=== PATIENT | female | born 1970 | race Hispanic/Latino ===

== ENCOUNTER 2017-11-10 00:10 | Emergency (ER) | payer SELFPAY | END 2017-11-10 00:11 | disposition left against medical advice (07) | LOC: ED 00:10 | DX: R51 Headache (principal); Z53.21 Procedure and treatment not carried out due to patient leaving prior to being seen by health care provider ==

== ENCOUNTER 2017-11-11 07:00 | Emergency (ER) | payer BC ==
--- NOTE | 2017-11-11 10:49 | Emergency Department Report ---
ED Headache HPI - General Chief Complaint: Headache Stated Complaint: HEADACHE Time Seen by Provider: 11/11/17 10:12 Source: patient, family Exam Limitations: no limitations - History of Present Illness Initial Comments: Patient is a 47-year-old female that presents to emergency room with headache 3 days. Patient states that she has been taking [id number] medications and is not getting any relief. Patient states that her pain is a 10 right frontal. She denies dizziness and blurry vision. Patient denies fever and chills and cough. Patient states the worst headache of her life. Timing/Duration: constant Quality: severe Head Injury Location: frontal Recent Head Trauma: no recent headache/trauma Modifying Factors: improves with: exposure to light, medication, movement, rest Associated Symptoms: denies symptoms Allergies/Adverse Reactions: Allergies No Known Allergies Allergy (Verified 11/11/17 07:17) Home Medications: Ambulatory Orders Amlodipine Besylate [Norvasc] 10 mg PO DAILY 11/11/17 Amoxicillin [Amoxicillin TAB] 875 mg PO BID 10 Days #20 tablet 11/11/17 AtorvaSTATin [Lipitor] 10 mg PO QHS 11/11/17 Sitagliptin Phos/Metformin HCl [Janumet XR 50-1,000 mg] 1 tab PO DAILY 11/11/17 Triamterene/Hydrochlorothiazid [Triamterene-Hctz 75-50 mg Tab] 1 tab PO DAILY glipiZIDE [Glipizide] 10 mg PO BID 11/11/17 methylPREDNISolone [Medrol] 4 mg PO DAILY 6 Days #1 tab.ds.pk 11/11/17 ED Review of Systems ROS: Stated complaint: HEADACHE Other details as noted in HPI Comment: All other systems reviewed and negative Constitutional: denies: chills, fever Eyes: denies: eye pain, eye discharge, vision change ENT: denies: ear pain, throat pain Respiratory: denies: cough, shortness of breath, wheezing Cardiovascular: denies: chest pain, palpitations Endocrine: no symptoms reported Gastrointestinal: denies: abdominal pain, nausea, diarrhea Genitourinary: denies: urgency, dysuria, discharge Musculoskeletal: denies: back pain, joint swelling, arthralgia Skin: denies: rash, lesions Neurological: as per HPI, headache. denies: weakness, paresthesias Psychiatric: denies: anxiety, depression Hematological/Lymphatic: denies: easy bleeding, easy bruising ED Past Medical Hx - Past Medical History Previous Medical History?: Yes Hx Hypertension: Yes Hx Diabetes: Yes Hx of Cancer: Yes (lymphoma) - Surgical History Past Surgical History?: Yes - Family History Family history: hypertension - Social History Smoking Status: Never Smoker Substance Use Type: None - Medications Home Medications: Home Medications Medication Instructions Recorded Confirmed Last Taken Type Amlodipine Besylate [Norvasc] 10 mg PO DAILY 11/11/17 11/11/17 Unknown History Amoxicillin [Amoxicillin TAB] 875 mg PO BID 10 Days #20 tablet 11/11/17 Unknown Rx AtorvaSTATin [Lipitor] 10 mg PO QHS 11/11/17 11/11/17 Unknown History Sitagliptin Phos/Metformin HCl 1 tab PO DAILY 11/11/17 11/11/17 Unknown History [Janumet XR 50-1,000 mg] Triamterene/Hydrochlorothiazid 1 tab PO DAILY 11/11/17 11/11/17 Unknown History [Triamterene-Hctz 75-50 mg Tab] glipiZIDE [Glipizide] 10 mg PO BID 11/11/17 11/11/17 Unknown History methylPREDNISolone [Medrol] 4 mg PO DAILY 6 Days #1 tab.ds.pk 11/11/17 Unknown Rx ED Physical Exam - General Limitations: No Limitations General appearance: alert, in no apparent distress - Head Head exam: Present: atraumatic, normocephalic - Eye Eye exam: Present: normal appearance - ENT ENT exam: Present: mucous membranes dry, other (right frontal sinus tenderness and right maxillary sinus tenderness. ) - Expanded ENT Exam Expanded Ear exam: Present: normal external inspection Mouth exam: Present: normal external inspection - Neck Neck exam: Present: normal inspection - Respiratory Respiratory exam: Present: normal lung sounds bilaterally. Absent: respiratory distress - Cardiovascular Cardiovascular Exam: Present: regular rate, normal rhythm. Absent: systolic murmur, diastolic murmur, rubs, gallop - GI/Abdominal GI/Abdominal exam: Present: soft, normal bowel sounds - Extremities Exam Extremities exam: Present: normal inspection - Back Exam Back exam: Present: normal inspection - Neurological Exam Neurological exam: Present: alert, oriented X3 - Psychiatric Psychiatric exam: Present: normal affect, normal mood - Skin Skin exam: Present: warm, dry, intact, normal color. Absent: rash ED Course Vital Signs 11/11/17 11/11/17 07:17 09:44 Temperature 98.9 F 97.9 F Pulse Rate 84 85 Respiratory 18 18 Rate Blood Pressure 173/101 Blood Pressure 147/90 [Left] O2 Sat by Pulse 96 99 Oximetry ED Medical Decision Making - Lab Data Result diagrams: 11/11/17 11:02 11/11/17 11:02 - Radiology Data Radiology results: report reviewed Normal limits CT scan - Medical Decision Making Patient is a 47-year-old female that presented to emergency room with headache [address] is normal labs unremarkable for elevated white count. Patient has right frontal sinus and right maxillary sinus tenderness on exam. Will treat patient for sinusitis. She is stable for discharge. All labs and diagnostics reviewed and discussed with patient. She given discharge instructions and instructions on how to take prescriptions. - Differential Diagnosis headache, sinus rueda, uri. migraine, tension rueda Critical care attestation.: If time is entered above; I have spent that time in minutes in the direct care of this critically ill patient, excluding procedure time. ED Disposition Clinical Impression: Headache, Sinusitis Disposition: DC-01 TO HOME OR SELFCARE Is pt being admited?: No Does the pt Need Aspirin: No Condition: Stable Instructions: Sinusitis (ED) Additional Instructions: Patient to follow-up with primary care in 3-5 days. Patient take medications as prescribed. Increase water. Patient to take ibuprofen and Tylenol when necessary. Patient to follow-up in the ER if condition worsens. Prescriptions: Amoxicillin [Amoxicillin TAB] 875 mg PO BID 10 Days #20 tablet methylPREDNISolone [Medrol] 4 mg PO DAILY 6 Days #1 tab.ds.pk Referrals: YANIRA DELVALLE MD [Primary Care Provider] - 3-5 Days Time of Disposition: 12:09
[2017-11-11 11:32] LABS: Basophils % (Auto) 0.3 % (0.0-1.8); Eosinophils # (Auto) 0.1 K/mm3 (0.0-0.4); Eosinophils % (Auto) 0.8 % (0.0-4.3); Hematocrit 43.6 % (30.3-42.9); Hemoglobin 13.8 gm/dl (10.1-14.3); Lymphocytes # (Auto) 3.6 K/mm3 (1.2-5.4); Lymphocytes % (Auto) 26.4 % (13.4-35.0); Mean Corpuscular HGB Conc 32 % (30-34); Mean Corpuscular Hemoglobin 28 pg (28-32); Mean Corpuscular Volume 88 fl (79-97); Monocytes # (Auto) 0.7 K/mm3 (0.0-0.8); Monocytes % (Auto) 4.9 % (0.0-7.3); Red Blood Count 4.96 M/mm3 (3.65-5.03); Red Cell Distribution Width 14.3 % (13.2-15.2)
--- NOTE | 2017-11-11 11:34 | Cat Scan Report ---
CT HEAD WITHOUT CONTRAST: HISTORY: Headache. TECHNIQUE: Sequential 2.5mm CT images. COMPARISON: none. FINDINGS: Cerebral Parenchyma: Within normal limits. Cerebellum: Within normal limits. Brainstem: Within normal limits. Ventricles: Normal. Sella: Normal. Extra-axial spaces: Normal. Basal Cisterns: Normal. Intracranial Hemorrhage: None. Midline Shift: None. Calvarium: Normal. Sinuses: Normal. Mastoid Air Cells: Normal. Visualized Orbits: Normal. IMPRESSION: Cranial CT scan within normal limits.
[2017-11-11 11:40] LABS: Platelet Count 215 K/mm3 (140-440)
[2017-11-11 11:50] LABS: Alanine Aminotransferase 17 units/L (7-56); Albumin 3.8 g/dL (3.9-5); BUN/Creatinine Ratio 14; Blood Urea Nitrogen 10 mg/dL (7-17); Hemolysis Index 18
[2017-11-11 11:58] LABS: HCG Qualitative,Urine Negative (Negative)
[2017-11-11 12:01] LABS: Bacteria,Urine 1+ /HPF (Negative); Bilirubin,Urine NEG (Negative); Blood,Urine NEG (Negative); Color,Urine Yellow (Yellow); Mucus,Urine 3+ /HPF; Nitrite,Urine NEG (Negative); Urobilinogen,Urine < 2.0 mg/dL (<2.0)
[2017-11-11] MEDS ORDERED: ROCEPHIN IM ONE (12:11)
[2017-11-11] MEDS ORDERED: XYLOCAINE 1% MPF 5 mL INFILTRATI ONE (12:11)
[2017-11-11 12:49] VITALS: BP 151/94
== END 2017-11-11 12:48 | disposition home or self-care (01) ==
LOC: ED 07:00
DX: J32.9 Chronic sinusitis, unspecified (principal); I10 Essential (primary) hypertension; E11.9 Type 2 diabetes mellitus without complications; Z85.72 Personal history of non-Hodgkin lymphomas
CPT/HCPCS: 36415; 70450; 80053; 81001; 81025; 85025; 96372; 99284; J0696; J2930

== ENCOUNTER 2018-05-31 15:16 | Emergency (ER) | payer BC ==
[2018-05-31] MEDS ORDERED: MOTRIN PO ONE (16:55)
--- NOTE | 2018-05-31 18:19 | Emergency Department Report ---
ED Extremity Problem HPI - General Chief complaint: Extremity Injury, Upper Stated complaint: LEFT ARM/PAIN Time Seen by Provider: 05/31/18 16:42 Source: patient Mode of arrival: Ambulatory Limitations: No Limitations - History of Present Illness Initial comments: Patient is a 47-year-old female who slipped and fell on her left shoulder and arm. The patient states she did not hit her head there was no loss of consciousness. Patient states that the pain is 8 out of 10 in severity her torso she is moving her arm she does have full range of motion.. Severity scale (0 -10): 7 - Related Data Home Medications Medication Instructions Recorded Confirmed Last Taken Amlodipine Besylate [Norvasc] 10 mg PO DAILY 11/11/17 11/11/17 Unknown AtorvaSTATin [Lipitor] 10 mg PO QHS 11/11/17 11/11/17 Unknown Sitagliptin Phos/Metformin HCl 1 tab PO DAILY 11/11/17 11/11/17 Unknown [Janumet XR 50-1,000 mg] Triamterene/Hydrochlorothiazid 1 tab PO DAILY 11/11/17 11/11/17 Unknown [Triamterene-Hctz 75-50 mg Tab] glipiZIDE [Glipizide] 10 mg PO BID 11/11/17 11/11/17 Unknown Previous Rx's Medication Instructions Recorded Last Taken Type Amoxicillin [Amoxicillin TAB] 875 mg PO BID 10 Days #20 tablet 11/11/17 Unknown Rx methylPREDNISolone [Medrol] 4 mg PO DAILY 6 Days #1 tab.ds.pk 11/11/17 Unknown Rx HYDROcodone/APAP 5-325 [[place] 1 each PO Q4HR PRN #12 tablet 05/31/18 Unknown Rx 5/325] Ibuprofen [Motrin] 600 mg PO Q8H PRN #20 tablet 05/31/18 Unknown Rx Allergies Allergy/AdvReac Type Severity Reaction Status Date / Time No Known Allergies Allergy Verified 11/11/17 07:17 ED Review of Systems ROS: Stated complaint: LEFT ARM/PAIN Other details as noted in HPI Comment: All other systems reviewed and negative ED Past Medical Hx - Past Medical History Hx Hypertension: Yes Hx Diabetes: Yes Additional medical history: lymphoma - Surgical History Past Surgical History?: No - Social History Smoking Status: Never Smoker Substance Use Type: None - Medications Home Medications: Home Medications Medication Instructions Recorded Confirmed Last Taken Type Amlodipine Besylate [Norvasc] 10 mg PO DAILY 11/11/17 11/11/17 Unknown History Amoxicillin [Amoxicillin TAB] 875 mg PO BID 10 Days #20 tablet 11/11/17 Unknown Rx AtorvaSTATin [Lipitor] 10 mg PO QHS 11/11/17 11/11/17 Unknown History Sitagliptin Phos/Metformin HCl 1 tab PO DAILY 11/11/17 11/11/17 Unknown History [Janumet XR 50-1,000 mg] Triamterene/Hydrochlorothiazid 1 tab PO DAILY 11/11/17 11/11/17 Unknown History [Triamterene-Hctz 75-50 mg Tab] glipiZIDE [Glipizide] 10 mg PO BID 11/11/17 11/11/17 Unknown History methylPREDNISolone [Medrol] 4 mg PO DAILY 6 Days #1 tab.ds.pk 11/11/17 Unknown Rx HYDROcodone/APAP 5-325 [[place] 1 each PO Q4HR PRN #12 tablet 05/31/18 Unknown Rx 5/325] Ibuprofen [Motrin] 600 mg PO Q8H PRN #20 tablet 05/31/18 Unknown Rx ED Physical Exam - General Limitations: No Limitations General appearance: alert, in no apparent distress - Head Head exam: Present: atraumatic, normocephalic - Eye Eye exam: Present: normal appearance - ENT ENT exam: Present: mucous membranes moist - Neck Neck exam: Present: normal inspection - Respiratory Respiratory exam: Present: normal lung sounds bilaterally. Absent: respiratory distress - Cardiovascular Cardiovascular Exam: Present: regular rate, normal rhythm. Absent: systolic murmur, diastolic murmur, rubs, gallop - GI/Abdominal GI/Abdominal exam: Present: soft, normal bowel sounds - Extremities Exam Extremities exam: Present: normal inspection, full ROM, tenderness (the tenderness at the left elbow) - Back Exam Back exam: Present: normal inspection - Neurological Exam Neurological exam: Present: alert, oriented X3 - Psychiatric Psychiatric exam: Present: normal affect, normal mood - Skin Skin exam: Present: warm, dry, intact, normal color. Absent: rash ED Course Vital Signs 05/31/18 05/31/18 15:22 17:00 Temperature 98.5 F Pulse Rate 88 Respiratory 18 18 Rate Blood Pressure 134/79 O2 Sat by Pulse 98 Oximetry ED Medical Decision Making - Radiology Data interpreted by me: X-rays of the left elbow and left shoulder showed no acute process. - Medical Decision Making Patient will be treated for symptomatically relief and be discharged home. Critical care attestation.: If time is entered above; I have spent that time in minutes in the direct care of this critically ill patient, excluding procedure time. ED Disposition Clinical Impression: Musculoskeletal arm pain Qualifiers: Laterality: left Qualified Code(s): M79.602 - Pain in left arm Disposition: DC- TO HOME OR SELFCARE Is pt being admited?: No Does the pt Need Aspirin: No Condition: Stable Instructions: Musculoskeletal Pain (ED) Referrals: PRIMARY CARE, [Primary Care Provider] - 3-5 Days
[2018-05-31 18:30] VITALS: BP 135/80
--- NOTE | 2018-05-31 19:13 | XRay Report ---
FINAL REPORT PROCEDURE: XR ELBOW 3+V LT TECHNIQUE: LEFT elbow radiographs, including AP, lateral, and oblique views. CPT 52719 HISTORY: Fall injury. COMPARISON: No prior studies are available for comparison. FINDINGS: Fracture (s) and/or Dislocation(s): None . Alignment: Normal . Joint space(s): Normal . Soft tissues: Normal . Bone mineralization: Normal . Foreign bodies: None . IMPRESSION: No radiographic evidence of displaced fracture.
--- NOTE | 2018-05-31 19:20 | XRay Report ---
FINAL REPORT PROCEDURE: XR SHOULDER 2+V LT TECHNIQUE: LEFT shoulder radiographs including AP views in internal and external rotation and scapular Y-view. CPT 76096 HISTORY: Fall injury. COMPARISON: No prior studies are available for comparison. FINDINGS: Fracture (s) and/or Dislocation(s): None . Joint space(s): Minimal irregularity of the inferior glenoid. Soft tissues: Normal . Bone mineralization: Normal . Foreign bodies: None . IMPRESSION: No radiographic evidence of displaced fracture. Minimal irregularity of the inferior glenoid, most likely positional or small osteophyte rather than minimally displaced fracture. Consider further characterization including CT scan if there is continued clinical concern.
== END 2018-05-31 18:29 | disposition home or self-care (01) ==
LOC: ED 15:16
DX: M79.602 Pain in left arm (principal); M25.522 Pain in left elbow; M25.512 Pain in left shoulder; I10 Essential (primary) hypertension; E11.9 Type 2 diabetes mellitus without complications
CPT/HCPCS: 99283